=== PATIENT | female | born 1970 | race Caucasian/White ===

== ENCOUNTER 2017-08-22 14:38 | Emergency (ER) | payer MEDICAID, OTHER ==
[~2017-08-22] VITALS: Ht 188 cm; Wt 142.4 kg
[~2017-08-22 14:38] MED LIST: TRAM50TA2 PO
[2017-08-22 15:03] LABS: BASOPHILS # (AUTO) 0.1 10^3/uL (0.0-0.1); BASOPHILS % (AUTO) 1 % (0-10); EOSINOPHILS # (AUTO) 0.2 10^3/uL (0.0-0.3); EOSINOPHILS % (AUTO) 6 % (0-10); HEMATOCRIT 29 % (35-52); HEMOGLOBIN 8.7 G/DL (11.5-16.0); LYMPHOCYTES % (AUTO) 27 % (12-44); MEAN CORPUSCULAR HEMOGLOBIN 24 PG (25-34); MEAN CORPUSCULAR HGB CONC 30 G/DL (32-36); MEAN CORPUSCULAR VOLUME 77 FL (80-99); MEAN PLATELET VOLUME 11.5 FL (7.4-10.4); MONOCYTES # (AUTO) 0.3 X 10^3 (0.0-1.0); MONOCYTES % (AUTO) 7 % (0-12); NEUTROPHILS # (AUTO) 2.2 X 10^3 (1.8-7.8); NEUTROPHILS % (AUTO) 59 % (42-75); PLATELET COUNT 240 10^3/uL (130-400); RED BLOOD COUNT 3.71 10^6/uL (4.35-5.85); RED CELL DISTRIBUTION WIDTH 18.6 % (10.0-14.5); WHITE BLOOD COUNT 3.7 10^3/uL (4.3-11.0)
[2017-08-22] MEDS ORDERED: ASPI81TA55 PO (15:15)
[2017-08-22 15:25] LABS: ALANINE AMINOTRANSFERASE 13 U/L (0-55); ALBUMIN 4.5 GM/DL (3.2-4.5); ALKALINE PHOSPHATASE 49 U/L (40-136); BILIRUBIN,TOTAL 0.5 MG/DL (0.1-1.0); BUN/CREATININE RATIO 13; CALCIUM 9.2 MG/DL (8.5-10.1); CARBON DIOXIDE 21 MMOL/L (21-32); CHLORIDE 105 MMOL/L (98-107); CREATININE SERUM 0.78 MG/DL (0.60-1.30); GFR ESTIMATED > 60; GLUCOSE 86 MG/DL (70-105); SODIUM 136 MMOL/L (135-145); TOTAL PROTEIN 8.2 GM/DL (6.4-8.2)
--- NOTE | 2017-08-22 15:32 | ED Chest Pain ---
General Chief Complaint: Chest Pain Stated Complaint: CHEST PAIN/SOA LEFT SIDE NUMBNESS Nursing Sepsis Screen: No Definite Risk Source: patient Exam Limitations: no limitations History of Present Illness Date Seen by Provider: Aug 22, 2017 Time Seen by Provider: 15:28 Initial Comments The patient is a 46-year-old white female sent here from [facility]. She reported that she was on a visit there and was sitting in the nurse's office preparing for a blood draw. She got distal sub- sternal chest pain which lasted less than 2 minutes. There was no diaphoresis. An EKG was done there which had nonspecific abnormalities. She was then sent here. She has no knowledge as to whether she is diabetic. She has not previously had a cholesterol test. She has never smoked. She states that a brother who was a juvenile diabetic had a heart attack somewhere between the age of 18 and 20. She still has menstrual periods. She has no pain at this time. Allergies and Home Medications Allergies Coded Allergies: No Known Drug Allergies (Unverified , 05/24/13) Home Medications Aspirin 81 Mg Tablet.dr, 81 MG PO ONCE, (Reported) Tramadol Hcl 50 Mg Tablet, 50 MG PO Q4H PRN for PAIN Prescribed by: ULYSSES PRESTON on 05/24/13 9879 Patient Home Medication List Home Medication List Reviewed: Yes Review of Systems Constitutional: see HPI EENTM: No Symptoms Reported Respiratory: No Symptoms Reported Cardiovascular: See HPI Gastrointestinal: No Symptoms Reported Genitourinary: No Symptoms Reported Musculoskeletal: no symptoms reported Skin: no symptoms reported Psychiatric/Neurological: No Symptoms Reported Past Cxcemko-Rjoirl-Ybamuo Hx Patient Social History Recent Foreign Travel: No Contact w/Someone Who Travel: No Recent Infectious Disease Expo: No Recent Hopitalizations: No Physical Abuse: No Sexual Abuse: No Mistreated: No Fear: No Past Medical History Section, Tonsillectomy, Tubal Ligation Respiratory: No Currently Using CPAP: No Cardiac: No Neurological: No : No (TUBAL LITIGATION ) Female Reproductive Disorders: Endometriosis [employer] History: Tubal Ligation Genitourinary: No Gastrointestinal: No Musculoskeletal: No Endocrine: No HEENT: No Cancer: No Psychosocial: No (pt apperas very anxious ) Nursing Suicide Risk Score: 1 Integumentary: No Physical Exam Vital Signs Vital Signs - First Documented 08/22/17 08/22/17 14:43 14:45 Pulse 76 Resp 18 O2 Delivery Room Air O2 Flow Rate 0 Capillary Refill : Less Than 3 Seconds Height, Weight, BMI Height: 6', 2.00" Weight: 314lbs oz, [id number] Method:Stated ,BMI General Appearance: No Apparent Distress, WD/WN HEENT: Normal ENT Inspection Neck: Full Range of Motion, Normal Inspection, Non Tender Respiratory: Chest Non Tender, Lungs Clear, Normal Breath Sounds, No Accessory Muscle Use, No Respiratory Distress Cardiovascular: Regular Rate, Rhythm, No Edema, No Gallop, No JVD, No Murmur, Normal Peripheral Pulses Gastrointestinal: Normal Bowel Sounds, No Organomegaly, No Pulsatile Mass, Non Tender Extremity: Normal Capillary Refill, Normal Inspection, Normal Range of Motion, Non Tender, No Calf Tenderness Neurologic/Psychiatric: Alert, Oriented x3, No Motor/Sensory Deficits, Normal Mood/Affect Skin: Normal Color, Warm/Dry Progress/Results/Core Measures Results/Orders Lab Results Laboratory Tests Test 08/22/17 14:53 Range/Units White Blood Count 3.7 L 4.3-11.0 10^3/uL Red Blood Count 3.71 L 4.35-5.85 10^6/uL Hemoglobin 8.7 L 11.5-16.0 G/DL Hematocrit 29 L 35-52 % Mean Corpuscular Volume 77 L 80-99 FL Mean Corpuscular Hemoglobin 24 L 25-34 PG Mean Corpuscular Hemoglobin Concent 30 L 32-36 G/DL Red Cell Distribution Width 18.6 H 10.0-14.5 % Platelet Count 240 130-400 10^3/uL Mean Platelet Volume 11.5 H 7.4-10.4 FL Neutrophils (%) (Auto) 59 42-75 % Lymphocytes (%) (Auto) 27 12-44 % Monocytes (%) (Auto) 7 0-12 % Eosinophils (%) (Auto) 6 0-10 % Basophils (%) (Auto) 1 0-10 % Neutrophils # (Auto) 2.2 1.8-7.8 X 10^3 Lymphocytes # (Auto) 1.0 1.0-4.0 X 10^3 Monocytes # (Auto) 0.3 0.0-1.0 X 10^3 Eosinophils # (Auto) 0.2 0.0-0.3 10^3/uL Basophils # (Auto) 0.1 0.0-0.1 10^3/uL Sodium Level 136 135-145 MMOL/L Potassium Level 4.0 3.6-5.0 MMOL/L Chloride Level 105 98-107 MMOL/L Carbon Dioxide Level 21 21-32 MMOL/L Anion Gap 10 5-14 MMOL/L Blood Urea Nitrogen 10 7-18 MG/DL Creatinine 0.78 0.60-1.30 MG/DL Estimat Glomerular Filtration Rate > 60 BUN/Creatinine Ratio 13 Glucose Level 86 70-105 MG/DL Calcium Level 9.2 8.5-10.1 MG/DL Total Bilirubin 0.5 0.1-1.0 MG/DL Aspartate Amino Transf (AST/SGOT) 25 5-34 U/L Alanine Aminotransferase (ALT/SGPT) 13 0-55 U/L Alkaline Phosphatase 49 40-136 U/L Troponin I < 0.30 <0.30 NG/ML Total Protein 8.2 6.4-8.2 GM/DL Albumin 4.5 3.2-4.5 GM/DL My Orders Orders - CJ LY MD Cbc With Automated Diff (08/22/17 14:41) Comprehensive Metabolic Panel (08/22/17 14:41) Troponin I (08/22/17 14:41) Chest 1 View, Ap/Pa Only (08/22/17 14:41) Ekg Tracing (08/22/17 14:41) Vital Signs/I&O 08/22/17 08/22/17 14:43 14:45 Pulse 76 Resp 18 B/P (MAP) O2 Delivery Room Air Room Air O2 Flow Rate 0 Departure Communication (Admissions) Workup has been negative for chest pain. It is noted that her hemoglobin is 8.7. She was in the process of an initial visit to [facility] including blood work. This was discussed with the patient and her and she will return there on Friday to complete her enrollment It is noted that she has been significantly hypertensive while here with a peak of 198/132. She has not exhibited any end organ effect here. This was discussed with Dr. Kam who is on-call for [facility]. We agree that she would start on lisinopril 20 and hydrochlorothiazide 25 mg and be seen there on Friday for further adjustments. Impression Primary Impression: chest pain noncardiac Additional Impression: anemia Disposition: 01 HOME, SELF-CARE Condition: Stable/Unchanged Departure-Patient Inst. Decision time for Depature: 16:35 Referrals: [facility] (PCP/Family) Primary Care Physician Patient Instructions: Chest Pain That Is Not Caused by the Heart (DC) Add. Discharge Instructions: All discharge instructions reviewed with patient and/or family. Voiced understanding. Finish your initial visit with [facility]. Attention should be given to your anemia. Scripts Lisinopril (Lisinopril) 20 Mg Tablet 20 MG PO DAILY, #30 TAB Prov: CJ LY MD 08/22/17 [hctz] No Conflict Check 25 MG, #30 Prov: CJ LY MD 08/22/17 CJ LY MD Aug 22, 2017 15:31
--- NOTE | 2017-08-22 15:38 | Diagnostic Imaging Report ---
INDICATION: Chest pain. TECHNIQUE: Portable upright AP view of the chest is obtained. COMPARISON: No previous study is available for comparison at this time. FINDINGS: Heart size and pulmonary vasculature are within normal limits, and the lungs are clear, bilaterally. IMPRESSION: Unremarkable chest. Dictated by: Dictated on workstation # [id number]
[2017-08-22] MEDS ORDERED: LISI-552 PO (17:13)
[2017-08-22] MEDS ORDERED: hctz (17:13)
[2017-08-22] MEDS: HYDROCHLOROTHIAZIDE 25 MG (HCTZ) TAB PO ONE ×2 (17:49→17:53)
[2017-08-22] MEDS: lisINopril 20 MG (PRINIVIL) TABLET PO ONE ×2 (17:49→17:53)
[2017-08-22 17:56] VITALS: BP 162/100
== END 2017-08-22 17:56 | disposition home or self-care (01) ==
LOC: EDUNIT# 14:38 → ER 14:40
DX: R07.2 Precordial pain (principal); D64.9 Anemia, unspecified; Z79.82 Long term (current) use of aspirin; Z82.49 Family history of ischemic heart disease and other diseases of the circulatory system; Z98.51 Tubal ligation status; Z87.59 Personal history of other complications of pregnancy, childbirth and the puerperium; Z90.89 Acquired absence of other organs
CPT/HCPCS: 36415; 71045; 80053; 84484; 85025; 93005